=== PATIENT | female | born 1955 | race Caucasian/White ===

== ENCOUNTER 2019-02-16 02:39 | Emergency (ER) | payer OTHER ==
[~2019-02-16] VITALS: Ht 160 cm; Wt 77.1 kg
[2019-02-16 03:20] VITALS: BP_SYST 162
--- NOTE | 2019-02-16 03:22 | NUR ---
Patient triaged and placed in waiting room. Patient appears in no acute distress at this time. Accompanied by daughter , awaiting available bed, and MD notified of need for MSE. Provided with urine cup for urine sample collection.
[2019-02-16] MEDS ORDERED: GLU500 PO (03:33)
[2019-02-16] MEDS ORDERED: BECL10.62 INH (03:34)
[2019-02-16] MEDS ORDERED: FLUT1AER INH (03:34)
--- NOTE | 2019-02-16 04:30 | NUR ---
Patient to ER bed 4 to gown for evaluation. Side rails up.
--- NOTE | 2019-02-16 04:30 | NUR ---
Pt brought in by family. Pt states that she has had burning on urination for approximately 1 week. Pt states that she has had retention and frequency with burning. Pt states that the symptoms feel exactly like her previous urinary tract infection. Pt denies chest pain, nausea, vomiting, diarrhea. Pt vss. Resting in ED bed with family bedside.
[2019-02-16 04:53] LABS: BILIRUBIN,URINE NEGATIVE (NEGATIVE); BLOOD, URINE 3+ (NEGATIVE); CLARITY/URINE CLEAR (CLEAR); COLOR,URINE YELLOW (YELLOW); GLUCOSE,URINE NEGATIVE (NEGATIVE); KETONES,URINE NEGATIVE (NEGATIVE); LEUKOCYTE ESTERASE ,URINE 3+ (NEGATIVE); NITRITE, URINE NEGATIVE (NEGATIVE); PROTEIN URINE NEGATIVE (NEGATIVE); UROBILINOGEN,URINE 0.2 (0.2-1.0)
[2019-02-16 04:59] LABS: RBC,URINE 20-50 /HPF (0-3)
[2019-02-16 05:00] LABS: BACTERIA,URINE MODERATE /HPF (None Seen); WBC,URINE 20-50 /HPF (0-3)
--- NOTE | 2019-02-16 05:00 | NUR ---
LAB at bedside for blood draw.
[2019-02-16] MEDS ORDERED: KETOROLAC TROMETHAMINE 30 MG VIAL IM ONE (05:30)
--- NOTE | 2019-02-16 05:40 | NUR ---
Pelvic exam performed by with DEMOND Turner at bedside for entire examination. Patient tolerated procedure well. Patient assisted to position of comfort after examination.
[2019-02-16 05:44] LABS: BASOPHILS # (AUTO) 0.1 K/uL (0.0-0.2); EOSINOPHILS # (AUTO) 0.2 K/uL (0.0-0.4); HEMOGLOBIN 13.2 g/dL (12.0-16.0); MONOCYTES # (AUTO) 0.4 K/uL (0.0-1.0)
[2019-02-16 05:55] LABS: CALCIUM 8.8 mg/dL (8.4-11.0); CREATININE 0.71 mg/dL (0.55-1.30); POTASSIUM 3.7 mmol/L (3.5-5.1)
[2019-02-16 05:57] LABS: EOSINOPHILS % (AUTO) 2.1 % (0.0-4.0); HEMATOCRIT 39.5 % (36-48); LYMPHOCYTES # (AUTO) 1.8 K/uL (1.0-5.5); LYMPHOCYTES % (AUTO) 20.7 % (20.5-51.5); MEAN CORPUSCULAR HEMOGLOBIN 29 pg (27-31); MEAN CORPUSCULAR HGB CONC 34 % (32-36); MEAN CORPUSCULAR VOLUME 87 fL (79.0-98.0); MONOCYTES % (AUTO) 4.7 % (1.7-9.3); NEUTROPHILS # (AUTO) 6.1 K/uL (1.8-7.7); NEUTROPHILS % (AUTO) 71.5 % (40.0-70.0); PLATELET COUNT (AUTO) 302 K/uL (130-430); RED BLOOD CELL COUNT(AUTO) 4.56 MIL/uL (4.2-6.2); RED CELL DISTRIBUTION WIDTH 15.7 % (9.0-15.0); WHITE BLOOD COUNT (AUTO) 8.5 K/uL (4.8-10.8)
[2019-02-16 06:11] LABS: TOTAL BILIRUBIN 0.4 mg/dL (0.0-1.0)
[2019-02-16] MEDS ORDERED: NITROFURANTOIN MONOHYD/M-CRYST 100 MG CAPSULE PO ONE (07:00)
--- NOTE | 2019-02-16 07:25 | NUR ---
report received from Farzad LAGOS
[2019-02-16 08:07] VITALS: BP_SYST 122
--- NOTE | 2019-02-16 08:10 | NUR ---
Patient given written and verbal discharge instructions and verbalizes understanding. ER MD discussed with patient the results and treatment provided. Patient in stable condition. ID arm band removed. Rx of Fluticasone, Metformin, Belcomethasone given. Patient educated on pain management and to follow up with PMD. Pain Scale 0. Opportunity for questions provided and answered. Medication side effect fact sheet provided.
== END 2019-02-16 08:10 | disposition home or self-care (01) ==
LOC: SED 02:39
DX: N39.0 Urinary tract infection, site not specified (principal); Z88.8 Allergy status to other drugs, medicaments and biological substances; Z79.899 Other long term (current) drug therapy
CPT/HCPCS: 36415; 80053; 81000; 83605; 85025; 87086; 87186; 87210; 96372; 99283; J1885; J7030